=== PATIENT | male | born 1955 | race Caucasian/White ===

== ENCOUNTER → 2016-10-05 | Outpatient (CLI) | payer OTHER ==
[~2016-10-05] MED LIST: ASPIRIN E.C. 8181 MG PO; CALCIUM 600600 M2 PO; CALCIUM600 M2 PO; CARDIZEM CD 12120 MG PO; CARDIZEM SR 60M60 MG PO; CARDIZEM120 MG PO; CEPHALEXIN500 M1 PO; DIABETA 5MG5 MG/TAB PO; FISH OIL500 MG PO; GLUCOPHAGE1000 MG PO; GLUCOPHAGE500 MG/TAB PO; LISINOPRIL10 MG PO; METFORMIN500 MG PO; MICRONASE1.25 MG PO; MULTIPLE VITAMI1 TAB PO; PRINIVIL5 MG PO; RITE AID NATU200 MCG PO; SELENIUM200 MC5 PO; VITAMIN D 400400 IU PO; ZESTRIL 20MG TA20 MG PO; [UNRECOGNIZED DRUG - OTHER] PO
== END ==
LOC: COL.LAB 11:36
DX: M79.662 Pain in left lower leg (principal)

== ENCOUNTER 2016-12-29 18:47 | Emergency (ER) | payer OTHER ==
[~2016-12-29] VITALS: Ht 182.9 cm; Wt 129.5 kg
[~2016-12-29 18:47] MED LIST changes: -CARDIZEM SR 60M60 MG PO; -DIABETA 5MG5 MG/TAB PO; -GLUCOPHAGE1000 MG PO; -MICRONASE1.25 MG PO; -PRINIVIL5 MG PO
[2016-12-29 18:49] VITALS: TEMP 98.3
[2016-12-29] MEDS ORDERED: GLUCOPHAGE1000 MG PO (19:11)
[2016-12-29] MEDS ORDERED: DIABETA 5MG5 MG/TAB PO (19:14)
[2016-12-29] MEDS ORDERED: CARDIZEM SR 60M60 MG PO (19:15)
[2016-12-29] MEDS ORDERED: PRINIVIL5 MG PO (19:15)
[2016-12-29] MEDS ORDERED: MICRONASE1.25 MG PO (19:16)
[2016-12-29 20:06] VITALS: BP 149/82; PULSE 90
== END 2016-12-29 20:07 | disposition home or self-care (01) ==
LOC: COL.ER 18:47
DX: S99.911A Unspecified injury of right ankle, initial encounter (principal); S82.301A Unspecified fracture of lower end of right tibia, initial encounter for closed fracture; I10 Essential (primary) hypertension; E11.9 Type 2 diabetes mellitus without complications; Z79.84 Long term (current) use of oral hypoglycemic drugs; Z79.82 Long term (current) use of aspirin; X50.1XXA Overexertion from prolonged static or awkward postures, initial encounter; W18.39XA Other fall on same level, initial encounter; Y92.009 Unspecified place in unspecified non-institutional (private) residence as the place of occurrence of the external cause; Y93.39 Activity, other involving climbing, rappelling and jumping off

== ENCOUNTER → 2018-09-08 | Outpatient (CLI) | payer OTHER ==
[~2018-09-08] MED LIST changes: +CARDIZEM SR 60M60 MG PO; +DIABETA 5MG5 MG/TAB PO; +GLUCOPHAGE1000 MG PO; +MICRONASE1.25 MG PO; +PRINIVIL5 MG PO
== END ==
LOC: COL.RAD 13:13
DX: N50.89 Other specified disorders of the male genital organs (principal); L72.9 Follicular cyst of the skin and subcutaneous tissue, unspecified; I86.1 Scrotal varices

== ENCOUNTER → 2018-09-26 | Outpatient (CLI) | payer OTHER | LOC: COL.RAD 11:04 | DX: I86.1 Scrotal varices (principal) ==